=== PATIENT | male | born 2000 | race Two or more races ===

== ENCOUNTER 2024-02-23 12:49 | Emergency (ER) | payer OTHER ==
[~2024-02-23] VITALS: Ht 177.8 cm; Wt 81.6 kg
[2024-02-23 13:32] LABS: HEMATOCRIT 40.3 % (39.0-48.0); HEMOGLOBIN 14.1 g/dL (13-16.00); MEAN CELL VOLUME 82.1 fL (80.0-100.00); MEAN CORPUSCULAR HEMOGLOBIN 28.7 pg (27.00-32.0); PLATELET COUNT 186 K/uL (150-450); RED CELL DISTRIBUTION WIDTH 13.3 % (11.5-14.5)
[2024-02-23 13:35] LABS: ERYTHROCYTE SEDIMENTATION RATE 13 mm/hr
== END 2024-02-23 17:24 | disposition home or self-care (01) ==
LOC: ER 12:51
PROVIDERS: General Practice
DX: K11.8 Other diseases of salivary glands (principal); L02.91 Cutaneous abscess, unspecified